=== PATIENT | male | born 1940 | race Caucasian/White ===

== ENCOUNTER → 2017-05-18 | Outpatient (CLI) | payer MEDICARE, MEDICAID ==
[2017-05-18 10:18] LABS: BASOPHILS % 0.5 % (0.0-2.0); HEMATOCRIT. 40.2 % (42.0-52.0); HEMOGLOBIN. 13.6 g/dL (14.0-18.0); LYMPHOCYTES % 17.8 % (20.0-50.0); MEAN CORPUSCULAR HEMOGLOBIN 29.9 pg (28.0-32.0); MEAN CORPUSCULAR VOLUME 88.6 fL (80.0-94.0); MEAN PLATELET VOLUME 8.4 fl (7.4-10.4); MONOCYTES % 7.4 % (2.0-8.0); NEUTROPHILS % 68.3 % (40.0-76.0); PLATELET 175 x1000/uL (130-400); RED BLOOD CELL COUNT 4.53 mill/uL (4.7-6.1); RED CELL DISTRIBUTION WIDTH 13.6 % (11.6-14.6)
[2017-05-18 10:27] LABS: CLARITY URINE CLOUDY (CLEAR); COLOR URINE YELLOW (YELLOW); GLUCOSE URINE NEGATIVE (NEGATIVE); KETONES URINE NEGATIVE (NEGATIVE); LEUKOCYTE ESTERASE URINE NEGATIVE (NEGATIVE); NITRITE URINE NEGATIVE (NEGATIVE); OCCULT BLOOD URINE NEGATIVE (NEGATIVE); PH URINE 8.5 (4.5-8.0); PROTEIN URINE NEGATIVE (NEGATIVE); UROBILINOGEN URINE 0.2 E.U./dL (0.2-1.0)
[2017-05-18 10:50] LABS: CARBON DIOXIDE 31 mEq/L (21-32); CHLORIDE 104 mEq/L (98-107)
== END | disposition home or self-care (01) ==
LOC: LAB 09:46
PROVIDERS: ATTEND Urology
DX: Z01.818 Encounter for other preprocedural examination (principal); N43.3 Hydrocele, unspecified
CPT/HCPCS: 36415; 80048; 81001; 85025

== ENCOUNTER 2019-09-06 06:10 | Inpatient (IN) | payer MEDICARE, MEDICAID ==
[~2019-09-06] VITALS: Ht 170.2 cm; Wt 90.7 kg
[2019-09-06 08:20] LABS: CLARITY URINE CLEAR (CLEAR); COLOR URINE YELLOW (YELLOW); KETONES URINE NEGATIVE (NEGATIVE); LEUKOCYTE ESTERASE URINE NEGATIVE (NEGATIVE); NITRITE URINE NEGATIVE (NEGATIVE); OCCULT BLOOD URINE NEGATIVE (NEGATIVE); PH URINE 7.5 (4.5-8.0); PROTEIN URINE NEGATIVE (NEGATIVE); SPECIFIC GRAVITY URINE 1.023 (1.005-1.030); UROBILINOGEN URINE 0.2 E.U./dL (0.2-1.0)
[2019-09-06] MEDS ORDERED: MESA800T PO (09:44)
[2019-09-06] MEDS ORDERED: METF500S7 PO (09:44)
[2019-09-06] MEDS ORDERED: GLYB5TAB7 PO (09:44)
[2019-09-06] MEDS ORDERED: PROPOFOL 200MG/20ML VIAL IV ONE (09:57)
[2019-09-06] MEDS ORDERED: FENTANYL CITRATE/PF 50MCG/ML 2ML VIAL ONE (10:00)
[2019-09-06] MEDS ORDERED: MIDAZOLAM HCL 2 MG/2 ML VIAL ONE (10:00)
[2019-09-06] MEDS ORDERED: EPHEDRINE SULFATE 50MG/ML VIAL ONE (10:05)
[2019-09-06] MEDS ORDERED: SODIUM CHLORIDE 0.9% 10ML VIAL ONE (10:05)
[2019-09-06] MEDS ORDERED: ROCURONIUM BROMIDE 10MG/ML VIAL 5ML IV ONE (10:19)
[2019-09-06] MEDS ORDERED: CEFAZOLIN SODIUM 1000MG/VIAL ONE (10:20)
[2019-09-06] MEDS ORDERED: HYDROCORTISONE SOD SUCCINATE 100 MG/2 ML VIAL ONE (10:23)
[2019-09-06] MEDS ORDERED: ONDANSETRON HCL 4MG/2ML INJ ONE (10:24)
[2019-09-06] MEDS ORDERED: PHENYLEPHRINE HCL 10 MG/ML 1ML (IV VIAL) IV ONE (10:24)
[2019-09-06] MEDS ORDERED: METOCLOPRAMIDE HCL 10MG/2ML VIAL ONE (10:24)
[2019-09-06] MEDS ORDERED: NEOSTIGMINE METHYLSULFATE 1MG/ML 10 ML VIAL ONE (10:57)
[2019-09-06] MEDS ORDERED: GLYCOPYRROLATE 0.2 MG/ML 2ML VIAL ONE (11:02)
[2019-09-06] MEDS ORDERED: LORAZEPAM 1MG TABLET PO PRN (11:30)
[2019-09-06] MEDS ORDERED: MAGNESIUM HYDROXIDE 400MG/5ML 30ML UDC PO PRN (11:30)
[2019-09-06] MEDS ORDERED: HYDROCODONE/ACETAMINOPHEN 10/325MG TABLET PO PRN (11:30)
[2019-09-06] MEDS ORDERED: HYDROCODONE/ACETAMINOPHEN 5/325MG TABLET PO PRN (11:30)
[2019-09-06] MEDS ORDERED: DEXTROSE 50% WATER 50ML SYRINGE IV PRN (11:45)
[2019-09-06] MEDS ORDERED: HYDROMORPHONE HCL/PF 2MG/ML CPJ IV PRN (12:30)
[2019-09-06] MEDS: BLOOD SUGAR DIAGNOSTIC STRIP TEST SCH ×3 (13:00→20:29)
[2019-09-06 13:08] VITALS: BP 111/63
[2019-09-06 14:00] VITALS: BP 111/63
[2019-09-06] MEDS ORDERED: CEFAZOLIN SODIUM 1000MG/VIAL IV SCH (14:00)
[2019-09-06] MEDS: INSULIN LISPRO 100 UNITS/ML SUBCUT SCH ×3 (14:30→21:06)
[2019-09-06] MEDS ORDERED: MESA0.37 PO (15:51)
[2019-09-06 15:58] LABS: BASOPHILS % 0.3 % (0.0-2.0); EOSINOPHILS % 2.2 % (0.0-5.0); HEMATOCRIT. 40.1 % (42.0-52.0); HEMOGLOBIN. 13.7 g/dL (14.0-18.0); LYMPHOCYTES % 9.4 % (20.0-50.0); MEAN CORPUSCULAR HEMOGLOBIN 30.5 pg (28.0-32.0); MEAN CORPUSCULAR VOLUME 89.5 fL (80.0-94.0); MEAN PLATELET VOLUME 8.6 fl (7.4-10.4); MONOCYTES % 2.5 % (2.0-8.0); NEUTROPHILS % 85.6 % (40.0-76.0); PLATELET 173 x1000/uL (130-400); RED BLOOD CELL COUNT 4.48 mill/uL (4.7-6.1); RED CELL DISTRIBUTION WIDTH 12.9 % (11.6-14.6)
[2019-09-06 16:00] VITALS: BP 139/81
[2019-09-06 16:03] LABS: CHLORIDE 106 mEq/L (98-107)
[2019-09-06] MEDS: LEVOFLOXACIN 500MG TABLET PO SCH (17:11)
[2019-09-06] MEDS: DOCUSATE SODIUM 100MG CAPSULE PO SCH (17:11)
[2019-09-06 20:00] VITALS: BP 114/73
[2019-09-06] MEDS: CEFAZOLIN 1000MG PREMIX 50 ML IV SCH (20:29)
[2019-09-07] VITALS: BP 113/71
[2019-09-07 04:00] VITALS: BP 109/58
[2019-09-07] MEDS: CEFAZOLIN 1000MG PREMIX 50 ML IV SCH (04:29)
[2019-09-07] MEDS: BLOOD SUGAR DIAGNOSTIC STRIP TEST SCH ×4 (07:01→21:00)
[2019-09-07] MEDS: INSULIN LISPRO 100 UNITS/ML SUBCUT SCH ×4 (07:50→22:21)
[2019-09-07] MEDS: METFORMIN HCL 500MG TABLET PO SCH ×2 (07:50→18:31)
[2019-09-07 08:01] VITALS: BP 117/68
[2019-09-07] MEDS: DOCUSATE SODIUM 100MG CAPSULE PO SCH ×2 (08:52→18:31)
[2019-09-07 08:58] LABS: CHLORIDE 106 mEq/L (98-107)
[2019-09-07 12:00] VITALS: BP 119/72
[2019-09-07] MEDS: LEVOFLOXACIN 500MG TABLET PO SCH (12:15)
[2019-09-07] MEDS ORDERED: IBUPROFEN 600MG TABLET PO PRN (12:30)
[2019-09-07] MEDS: BICALUTAMIDE 50 MG TABLET PO SCH (14:00)
[2019-09-07 16:00] VITALS: BP 118/76
[2019-09-07 20:00] VITALS: BP 110/68
[2019-09-08] VITALS: BP 120/77
[2019-09-08 04:00] VITALS: BP 122/73
[2019-09-08] MEDS: BLOOD SUGAR DIAGNOSTIC STRIP TEST SCH ×2 (07:20→12:20)
[2019-09-08 08:00] VITALS: BP 132/84
[2019-09-08] MEDS: BICALUTAMIDE 50 MG TABLET PO SCH (09:26)
[2019-09-08] MEDS: METFORMIN HCL 500MG TABLET PO SCH (09:26)
[2019-09-08] MEDS: INSULIN LISPRO 100 UNITS/ML SUBCUT SCH ×2 (09:51→13:35)
[2019-09-08] MEDS: DOCUSATE SODIUM 100MG CAPSULE PO SCH (10:09)
[2019-09-08 12:00] VITALS: BP 130/78
[2019-09-08] MEDS: LEVOFLOXACIN 500MG TABLET PO SCH (13:16)
[2019-09-08 15:50] VITALS: BP 130/78
== END 2019-09-08 16:20 | disposition home or self-care (01) | DRG 713 ==
LOC: OR 06:10 → 6EST 06:11
PROVIDERS: ADMIT Urology; ATTEND Urology
PROC: 0VB08ZZ Excision of Prostate, Via Natural or Artificial Opening Endoscopic (ICD-10-PCS; principal; 2019-09-06)
DX: N40.1 Benign prostatic hyperplasia with lower urinary tract symptoms (principal); N13.8 Other obstructive and reflux uropathy; N32.89 Other specified disorders of bladder; E11.9 Type 2 diabetes mellitus without complications; R33.8 Other retention of urine
CPT/HCPCS: 36415; 80048; 81003; 82962; 85025; 88305; J0690; J1720; J1815; J2250; J2370; J2405; J2704; J2710; J2765; J3010; J3490